=== PATIENT | female | born 1965 | race Caucasian/White ===

== ENCOUNTER 2017-07-05 11:55 | Inpatient (IN) | payer OTHER ==
[2017-07-05 13:57] VITALS: BMI 36.1
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
[2017-07-05] MEDS ORDERED: LOPERAMIDE HCL 2 MG CAPSULE PO PRN (15:14)
[2017-07-05] MEDS ORDERED: IBUPROFEN 400 MG TABLET (FP) PO PRN (15:14)
[2017-07-05] MEDS ORDERED: guaiFENesin/D-METHORPHAN HB 10 ML UNIT-DOSE CUPS PO PRN (15:14)
[2017-07-05] MEDS ORDERED: MAGNESIUM CITRATE 300 ML BOTTLE PO PRN (15:14)
[2017-07-05] MEDS ORDERED: MAGNESIUM HYDROX 2400MG/30ML ORAL SUSPENSION 30 ML CUP PO PRN (15:14)
[2017-07-05] MEDS ORDERED: NICOTINE POLACRILEX 2 MG GUM BUC PRN (15:14)
[2017-07-05] MEDS ORDERED: MENTHOL/PHENOL 1 EACH UD MM PRN (15:14)
[2017-07-05] MEDS ORDERED: MAG HYDROX/AL HYDROX/SIMETH 30 ML UNIT-DOSE CUP PO PRN (15:14)
[2017-07-05] MEDS ORDERED: ACETAMINOPHEN 325 MG TABLET (FP) PO PRN (15:14)
[2017-07-05] MEDS ORDERED: P-EPHED 60MG/TRIPROLIDI 2.5MG TABLET PO PRN (15:14)
[2017-07-05] MEDS ORDERED: METHADONE HCL 10 MG TABLET (FOR DETOX USE ONLY) PO ONE ×2 (15:50→23:00)
[2017-07-05] MEDS: diazePAM 5 MG TABLET PO PRN ×2 (17:48→22:18)
[2017-07-05] MEDS: NICOTINE 21 MG/24 HOURS TOPICAL PATCH TD SCH (17:48)
[2017-07-05] MEDS: THIAMINE HCL 100 MG TABLET (FP) PO SCH (22:18)
[2017-07-05] MEDS: ATORVASTATIN CA 20 MG TABLET (FP) PO SCH (22:18)
[2017-07-05] MEDS: INSULIN DETEMIR 100 UNITS/ML MDV SQ SCH (22:19)
[2017-07-06 00:28] LABS: URINE APPEARANCE CLEAR; URINE BILIRUBIN NEGATIVE (NEGATIVE); URINE BLOOD NEGATIVE (NEGATIVE); URINE COLOR YELLOW; URINE GLUCOSE (UA) NEGATIVE (NEGATIVE); URINE KETONE NEGATIVE (NEGATIVE); URINE LEUK ESTERASE NEGATIVE (NEGATIVE); URINE NITRITE NEGATIVE (NEGATIVE); URINE PROTEIN NEGATIVE (NEGATIVE); URINE UROBILINOGEN NEGATIVE mg/dL (0.2-1.0)
[2017-07-06] MEDS ORDERED: METHADONE HCL 10 MG TABLET (FOR DETOX USE ONLY) PO ONE (10:00)
[2017-07-06 10:10] LABS: HEMATOCRIT 38.4 % (32.4-45.2); HEMOGLOBIN 12.8 GM/dL (10.7-15.3); MCH 30.2 pg (25.7-33.7); MCHC 33.5 g/dl (32.0-36.0); MEAN CELL VOLUME 90.2 fl (80-96); MEAN PLT VOLUME 8.2 fl (7.5-11.1); PLATELET COUNT 266 K/MM3 (134-434); RBC 4.26 M/mm3 (3.60-5.2); RDW 13.6 % (11.6-15.6); WHITE BLOOD COUNT 10.2 K/mm3 (4.0-10.0)
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
[2017-07-06 10:28] LABS: CHLORIDE 101 mmol/L (98-107); SODIUM 136 mmol/L (136-145)
[2017-07-06 10:37] LABS: ALBUMIN 4.2 g/dl (3.4-5.0); ALK PHOS 132 U/L (45-117); ANION GAP 8 (8-16); BILIRUBIN,TOTAL 0.6 mg/dL (0.2-1.0); BLOOD UREA NITROGEN 12 mg/dL (7-18); CALCIUM 9.3 mg/dL (8.5-10.1); CO2 27 mmol/L (21-32); CREATININE 0.7 mg/dL (0.55-1.02); GLUCOSE,RANDOM 193 mg/dL (74-106); SGOT/AST 10 U/L (15-37); SGPT/ALT 10 U/L (12-78); TOT PROT 7.8 g/dl (6.4-8.2)
[2017-07-06] MEDS: amLODIPine BESYLATE 10 MG TABLET (FP) PO SCH (10:37)
[2017-07-06] MEDS: PRENATAL VITAMINS W/ FOLIC ACID TABLET (FP) PO SCH (10:37)
[2017-07-06] MEDS: PATIENT'S OWN MEDICATION (NON-FORMULARY) (Empagliflozin [Jardiance] 25 MG) PO SCH (10:38)
[2017-07-06] MEDS: PATIENT'S OWN MEDICATION (NON-FORMULARY) (Diclofenac Sodium [Diclofenac Sodium Er] 100 MG) PO SCH (10:38)
[2017-07-06] MEDS: diazePAM 5 MG TABLET PO PRN ×3 (10:38→19:44)
[2017-07-06] MEDS: PATIENT'S OWN MEDICATION (NON-FORMULARY) (Benazepril Hcl [Benazepril Hcl] 20 MG) PO SCH (10:38)
[2017-07-06] MEDS: CHOLECALCIFEROL (VITAMIN D3) 1,000 UNIT TABLET (FP) PO SCH (10:40)
[2017-07-06] MEDS: NICOTINE 21 MG/24 HOURS TOPICAL PATCH TD SCH (10:41)
[2017-07-06] MEDS ORDERED: FLU VACCINE QUAD 60 MCG/0.5 ML (MDV 17-18) IM ONE (12:00)
--- NOTE | 2017-07-06 12:32 | PN ---
[facility] CIWA - CIWA Score Nausea/Vomitin Muscle Tremors: 3 Anxiety: 3 Agitation: 3 Paroxysmal Sweats: 3 Orientation: 0-Oriented Tacttile Disturbances: 2-Mild Itch/Numbness/Burn Auditory Disturbances: 0-None Visual Disturbances: 0-None Headache: 0-None Present CIWA-Ar Total Score: 17 BHS COWS - Scale Resting Pulse: 0= [place] 80 or Below Sweatin= Chills/Flushing Restless Observation: 1= Difficult to Sit Still Pupil Size: 1= Pupils >than Normal Bone or Joint Aches: 2= Severe Diffuse Aches Runny Nose/ Eye Tearin= Nasal Congestion GI Upset > 30mins: 2= Nausea/Diarrhea Tremor Observation of Outstretched Hands: 2= Slight Tremor Visible Yawning Observation: 0= None Anxiety or Irritability: 1=Feels Anxious/Irritable Goose Flesh Skin: 0=Smooth Skin COWS Score: 11 S Progress Note (SOAP) Subjective: interrupted , sleep, ,sweat, decreased appetite Objective: 07/06/17 12:30 Vital Signs Temperature 98.6 F 07/06/17 10:41 Pulse Rate 79 07/06/17 10:41 Respiratory Rate 19 07/06/17 10:41 Blood Pressure 126/76 07/06/17 10:41 O2 Sat by Pulse Oximetry (%) Laboratory Tests 07/05/17 07/05/17 07/06/17 15:02 21:59 00:05 WBC RBC Hgb Hct MCV MCH MCHC RDW Plt Count MPV Sodium Potassium Chloride Carbon Dioxide Anion Gap BUN Creatinine Creat Clearance w eGFR POC Glucometer 256 216 Random Glucose Calcium Total Bilirubin AST ALT Alkaline Phosphatase Total Protein Albumin Urine Color Yellow Urine Appearance Clear Urine pH 5.0 Ur Specific [place] 1.023 Urine Protein Negative Urine Glucose (UA) Negative Urine Ketones Negative Urine Blood Negative Urine Nitrite Negative Urine Bilirubin Negative Urine Urobilinogen Negative Ur Leukocyte Esterase Negative RPR Titer 07/06/17 07/06/17 07/06/17 06:00 06:00 06:00 WBC 10.2 H RBC 4.26 Hgb 12.8 Hct 38.4 MCV 90.2 MCH 30.2 MCHC 33.5 RDW 13.6 Plt Count 266 MPV 8.2 Sodium 136 Potassium 4.0 Chloride 101 Carbon Dioxide 27 Anion Gap 8 BUN 12 Creatinine 0.7 Creat Clearance w eGFR > 60 POC Glucometer Random Glucose 193 H Calcium 9.3 Total Bilirubin 0.6 D AST 10 L ALT 10 L Alkaline Phosphatase 132 H Total Protein 7.8 Albumin 4.2 Urine Color Urine Appearance Urine pH Ur Specific [place] Urine Protein Urine Glucose (UA) Urine Ketones Urine Blood Urine Nitrite Urine Bilirubin Urine Urobilinogen Ur Leukocyte Esterase RPR Titer Nonreactive 07/06/17 06:17 WBC RBC Hgb Hct MCV MCH MCHC RDW Plt Count MPV Sodium Potassium Chloride Carbon Dioxide Anion Gap BUN Creatinine Creat Clearance w eGFR POC Glucometer 161 Random Glucose Calcium Total Bilirubin AST ALT Alkaline Phosphatase Total Protein Albumin Urine Color Urine Appearance Urine pH Ur Specific [place] Urine Protein Urine Glucose (UA) Urine Ketones Urine Blood Urine Nitrite Urine Bilirubin Urine Urobilinogen Ur Leukocyte Esterase RPR Titer pt aox3 in nad , ambulating Assessment: 07/06/17 12:32 withdrawal sx's Plan: cont detox increase fluids myllanta prn
--- NOTE | 2017-07-06 15:11 | EKG ---
Test Reason : Blood Pressure : / mmHG Vent. Rate : 082 BPM Atrial Rate : 082 BPM P-R Int : 154 ms QRS Dur : 090 ms QT Int : 414 ms P-R-T Axes : 072 055 071 degrees QTc Int : 483 ms NORMAL SINUS RHYTHM POSSIBLE LEFT ATRIAL ENLARGEMENT PROLONGED QT ABNORMAL ECG NO PREVIOUS ECGS AVAILABLE Confirmed by ARIANA VILLAGRAN MD ([id number]) on 07/06/2017 3:11:30 PM Referred By: Confirmed By:ARIANA VILLAGRAN MD
[2017-07-06] MEDS: INSULIN DETEMIR 100 UNITS/ML MDV SQ SCH (22:14)
[2017-07-06] MEDS: GABAPENTIN 300 MG CAPSULE (FP) PO SCH (22:14)
[2017-07-06] MEDS: ATORVASTATIN CA 20 MG TABLET (FP) PO SCH (22:14)
[2017-07-06] MEDS: THIAMINE HCL 100 MG TABLET (FP) PO SCH (22:14)
[2017-07-06] MEDS: ZOLPIDEM TARTRATE 10 MG TABLET (PARK CARE ONLY) PO PRN (22:14)
[2017-07-07] MEDS: diazePAM 5 MG TABLET PO PRN ×6 (01:48→23:45)
[2017-07-07] MEDS: GABAPENTIN 300 MG CAPSULE (FP) PO SCH ×3 (06:05→22:25)
[2017-07-07] MEDS ORDERED: METHADONE HCL 5 MG TABLET (FOR DETOX USE ONLY) PO ONE (10:00)
[2017-07-07] MEDS: PATIENT'S OWN MEDICATION (NON-FORMULARY) (Diclofenac Sodium [Diclofenac Sodium Er] 100 MG) PO SCH (10:57)
[2017-07-07] MEDS: amLODIPine BESYLATE 10 MG TABLET (FP) PO SCH (10:57)
[2017-07-07] MEDS: PATIENT'S OWN MEDICATION (NON-FORMULARY) (Empagliflozin [Jardiance] 25 MG) PO SCH (10:57)
[2017-07-07] MEDS: PATIENT'S OWN MEDICATION (NON-FORMULARY) (Benazepril Hcl [Benazepril Hcl] 20 MG) PO SCH (10:57)
[2017-07-07] MEDS: PRENATAL VITAMINS W/ FOLIC ACID TABLET (FP) PO SCH (10:57)
[2017-07-07] MEDS: CHOLECALCIFEROL (VITAMIN D3) 1,000 UNIT TABLET (FP) PO SCH (10:57)
[2017-07-07] MEDS: NICOTINE 21 MG/24 HOURS TOPICAL PATCH TD SCH (10:58)
--- NOTE | 2017-07-07 15:33 | PN ---
S COWS - Scale Resting Pulse: 0= [place] 80 or Below Sweatin= Chills/Flushing Restless Observation: 3= Extraneous Movement Pupil Size: 1= Pupils >than Normal Bone or Joint Aches: 2= Severe Diffuse Aches Runny Nose/ Eye Tearin= Runny Nose/Eyes GI Upset > 30mins: 2= Nausea/Diarrhea Tremor Observation of Outstretched Hands: 2= Slight Tremor Visible Yawning Observation: 1= 1-2x During Session Anxiety or Irritability: 2=Irritable/Anxious Goose Flesh Skin: 0=Smooth Skin COWS Score: 16 S Progress Note (SOAP) Subjective: ALERT,IRRITABLE,ANXIOUS,INTERRUPTED SLEEP,TREMOR,PAIN IN THE BODY AND BACK Objective: 07/07/17 15:31 Vital Signs Temperature 99.0 F 07/07/17 14:09 Pulse Rate 82 07/07/17 14:09 Respiratory Rate 18 07/07/17 14:09 Blood Pressure 126/82 07/07/17 14:09 O2 Sat by Pulse Oximetry (%) Laboratory Last Values WBC 10.2 K/mm3 (4.0-10.0) H 07/06/17 06:00 RBC 4.26 M/mm3 (3.60-5.2) 07/06/17 06:00 Hgb 12.8 GM/dL (10.7-15.3) 07/06/17 06:00 Hct 38.4 % (32.4-45.2) 07/06/17 06:00 MCV 90.2 fl (80-96) 07/06/17 06:00 MCH 30.2 pg (25.7-33.7) 07/06/17 06:00 MCHC 33.5 g/dl (32.0-36.0) 07/06/17 06:00 RDW 13.6 % (11.6-15.6) 07/06/17 06:00 Plt Count 266 K/MM3 (134-434) 07/06/17 06:00 MPV 8.2 fl (7.5-11.1) 07/06/17 06:00 Sodium 136 mmol/L (136-145) 07/06/17 06:00 Potassium 4.0 mmol/L (3.5-5.1) 07/06/17 06:00 Chloride 101 mmol/L (98-107) 07/06/17 06:00 Carbon Dioxide 27 mmol/L (21-32) 07/06/17 06:00 Anion Gap 8 (8-16) 07/06/17 06:00 BUN 12 mg/dL (7-18) 07/06/17 06:00 Creatinine 0.7 mg/dL (0.55-1.02) 07/06/17 06:00 Creat Clearance w eGFR > 60 (>60) 07/06/17 06:00 POC Glucometer 130 UNITS (80-120) 07/06/17 17:05 Random Glucose 193 mg/dL (74-106) H 07/06/17 06:00 Calcium 9.3 mg/dL (8.5-10.1) 07/06/17 06:00 Total Bilirubin 0.6 mg/dL (0.2-1.0) D 07/06/17 06:00 AST 10 U/L (15-37) L 07/06/17 06:00 ALT 10 U/L (12-78) L 07/06/17 06:00 Alkaline Phosphatase 132 U/L (45-117) H 07/06/17 06:00 Total Protein 7.8 g/dl (6.4-8.2) 07/06/17 06:00 Albumin 4.2 g/dl (3.4-5.0) 07/06/17 06:00 Urine Color Yellow 07/06/17 00:05 Urine Appearance Clear 07/06/17 00:05 Urine pH 5.0 (5.0-8.0) 07/06/17 00:05 Ur Specific [place] 1.023 (1.001-1.035) 07/06/17 00:05 Urine Protein Negative (NEGATIVE) 07/06/17 00:05 Urine Glucose (UA) Negative (NEGATIVE) 07/06/17 00:05 Urine Ketones Negative (NEGATIVE) 07/06/17 00:05 Urine Blood Negative (NEGATIVE) 07/06/17 00:05 Urine Nitrite Negative (NEGATIVE) 07/06/17 00:05 Urine Bilirubin Negative (NEGATIVE) 07/06/17 00:05 Urine Urobilinogen Negative mg/dL (0.2-1.0) 07/06/17 00:05 Ur Leukocyte Esterase Negative (NEGATIVE) 07/06/17 00:05 RPR Titer Nonreactive (NONREACTIVE) 07/06/17 06:00 Hep C Ab Diagnostic <0.1 s/co ratio (0.0-0.9) 07/06/17 06:00 Assessment: 07/07/17 15:32 WITHDRAWAL SYMPTOM Plan: CONTINUE DETOX,MEDICATION ADJUST
[2017-07-07] MEDS: ATORVASTATIN CA 20 MG TABLET (FP) PO SCH (22:24)
[2017-07-07] MEDS: THIAMINE HCL 100 MG TABLET (FP) PO SCH (22:25)
[2017-07-07] MEDS: ZOLPIDEM TARTRATE 10 MG TABLET (PARK CARE ONLY) PO PRN (22:25)
[2017-07-08] MEDS: INSULIN DETEMIR 100 UNITS/ML MDV SQ SCH ×2 (00:07→22:31)
[2017-07-08] MEDS: hydrOXYzine PAMOATE 25 MG CAPSULE (FP) PO PRN (01:47)
[2017-07-08] MEDS: diazePAM 5 MG TABLET PO PRN ×3 (04:30→13:47)
[2017-07-08] MEDS: GABAPENTIN 300 MG CAPSULE (FP) PO SCH ×3 (07:17→22:31)
[2017-07-08] MEDS ORDERED: METHADONE HCL 10 MG TABLET (FOR DETOX USE ONLY) PO ONE (10:00)
[2017-07-08] MEDS ORDERED: METHADONE HCL 5 MG TABLET (FOR DETOX USE ONLY) PO ONE (10:00)
[2017-07-08] MEDS: PRENATAL VITAMINS W/ FOLIC ACID TABLET (FP) PO SCH (10:19)
[2017-07-08] MEDS: NICOTINE 21 MG/24 HOURS TOPICAL PATCH TD SCH (10:20)
[2017-07-08] MEDS: amLODIPine BESYLATE 10 MG TABLET (FP) PO SCH (10:20)
[2017-07-08] MEDS: PATIENT'S OWN MEDICATION (NON-FORMULARY) (Benazepril Hcl [Benazepril Hcl] 20 MG) PO SCH (10:21)
[2017-07-08] MEDS: CHOLECALCIFEROL (VITAMIN D3) 1,000 UNIT TABLET (FP) PO SCH (10:21)
[2017-07-08] MEDS: PATIENT'S OWN MEDICATION (NON-FORMULARY) (Empagliflozin [Jardiance] 25 MG) PO SCH (10:21)
[2017-07-08] MEDS: PATIENT'S OWN MEDICATION (NON-FORMULARY) (Diclofenac Sodium [Diclofenac Sodium Er] 100 MG) PO SCH (10:22)
--- NOTE | 2017-07-08 15:49 | PN ---
BHS Progress Note (SOAP) Subjective: sweat tremor anxiety restlessness irritable stuffy nose joint pain body aches Objective: 07/08/17 15:48 Vital Signs Temperature 97.9 F 07/08/17 15:13 Pulse Rate 80 07/08/17 15:13 Respiratory Rate 18 07/08/17 15:13 Blood Pressure 117/69 07/08/17 15:13 O2 Sat by Pulse Oximetry (%) Laboratory Last Values WBC 10.2 K/mm3 (4.0-10.0) H 07/06/17 06:00 RBC 4.26 M/mm3 (3.60-5.2) 07/06/17 06:00 Hgb 12.8 GM/dL (10.7-15.3) 07/06/17 06:00 Hct 38.4 % (32.4-45.2) 07/06/17 06:00 MCV 90.2 fl (80-96) 07/06/17 06:00 MCH 30.2 pg (25.7-33.7) 07/06/17 06:00 MCHC 33.5 g/dl (32.0-36.0) 07/06/17 06:00 RDW 13.6 % (11.6-15.6) 07/06/17 06:00 Plt Count 266 K/MM3 (134-434) 07/06/17 06:00 MPV 8.2 fl (7.5-11.1) 07/06/17 06:00 Sodium 136 mmol/L (136-145) 07/06/17 06:00 Potassium 4.0 mmol/L (3.5-5.1) 07/06/17 06:00 Chloride 101 mmol/L (98-107) 07/06/17 06:00 Carbon Dioxide 27 mmol/L (21-32) 07/06/17 06:00 Anion Gap 8 (8-16) 07/06/17 06:00 BUN 12 mg/dL (7-18) 07/06/17 06:00 Creatinine 0.7 mg/dL (0.55-1.02) 07/06/17 06:00 Creat Clearance w eGFR > 60 (>60) 07/06/17 06:00 POC Glucometer 104 UNITS (80-120) 07/08/17 11:47 Random Glucose 193 mg/dL (74-106) H 07/06/17 06:00 Calcium 9.3 mg/dL (8.5-10.1) 07/06/17 06:00 Total Bilirubin 0.6 mg/dL (0.2-1.0) D 07/06/17 06:00 AST 10 U/L (15-37) L 07/06/17 06:00 ALT 10 U/L (12-78) L 07/06/17 06:00 Alkaline Phosphatase 132 U/L (45-117) H 07/06/17 06:00 Total Protein 7.8 g/dl (6.4-8.2) 07/06/17 06:00 Albumin 4.2 g/dl (3.4-5.0) 07/06/17 06:00 Urine Color Yellow 07/06/17 00:05 Urine Appearance Clear 07/06/17 00:05 Urine pH 5.0 (5.0-8.0) 07/06/17 00:05 Ur Specific [place] 1.023 (1.001-1.035) 07/06/17 00:05 Urine Protein Negative (NEGATIVE) 07/06/17 00:05 Urine Glucose (UA) Negative (NEGATIVE) 07/06/17 00:05 Urine Ketones Negative (NEGATIVE) 07/06/17 00:05 Urine Blood Negative (NEGATIVE) 07/06/17 00:05 Urine Nitrite Negative (NEGATIVE) 07/06/17 00:05 Urine Bilirubin Negative (NEGATIVE) 07/06/17 00:05 Urine Urobilinogen Negative mg/dL (0.2-1.0) 07/06/17 00:05 Ur Leukocyte Esterase Negative (NEGATIVE) 07/06/17 00:05 RPR Titer Nonreactive (NONREACTIVE) 07/06/17 06:00 Hep C Ab Diagnostic <0.1 s/co ratio (0.0-0.9) 07/06/17 06:00 lab noted Assessment: 07/08/17 15:48 withdrawal sx Plan: continue detox
[2017-07-08] MEDS ORDERED: hydrOXYzine PAMOATE 50 MG CAPSULE (FP) PO ONE (18:05)
[2017-07-08] MEDS ORDERED: cloNIDine HCL 0.1 MG TABLET PO ONE (18:06)
--- NOTE | 2017-07-08 18:10 | PN ---
[facility] Progress Note Note: WITHDRAWAL SYMPTOM Vital Signs Temperature 97.1 F L 07/08/17 17:21 Pulse Rate 114 H 07/08/17 17:21 Respiratory Rate 20 07/08/17 17:21 Blood Pressure 142/102 07/08/17 17:21 O2 Sat by Pulse Oximetry (%) VISTARIL 50 MGS PO NOW CLONIDINE 0.1 MG PO NOW THEN BID CONTINUE DETOX,CLOSE MONITORING
[2017-07-08] MEDS: THIAMINE HCL 100 MG TABLET (FP) PO SCH (22:30)
[2017-07-08] MEDS: cloNIDine HCL 0.1 MG TABLET PO SCH (22:30)
[2017-07-08] MEDS: ATORVASTATIN CA 20 MG TABLET (FP) PO SCH (22:31)
[2017-07-08] MEDS: ZOLPIDEM TARTRATE 10 MG TABLET (PARK CARE ONLY) PO PRN (22:31)
[2017-07-09] MEDS ORDERED: METHADONE HCL 5 MG TABLET (FOR DETOX USE ONLY) PO ONE (06:00)
[2017-07-09] MEDS: GABAPENTIN 300 MG CAPSULE (FP) PO SCH (06:43)
[2017-07-09] MEDS: hydrOXYzine PAMOATE 25 MG CAPSULE (FP) PO PRN (06:44)
[2017-07-09 07:09] VITALS: BP 117/73; PULSE 68; TEMP 97.2
--- NOTE | 2017-07-09 09:41 | DS ---
[facility] Detox Discharge Summary Admission Date: 07/05/17 Discharge Date: 07/09/17 - History Present History: Opioid Dependence Additional Comments: 52 years old female admitted for opiate detox completed detox regimen today wants to go to [facility] for recovery patient is alert oriented x 3 steady gait no acute distress denies withdrawal sx cardiac s1s2 lung clear blaterally abdomen soft non tender extremities full rang of motion - Physical Exam Results Vital Signs: Vital Signs Temperature 97.2 F L 07/09/17 07:09 Pulse Rate 68 07/09/17 07:09 Respiratory Rate 20 07/09/17 07:09 Blood Pressure 117/73 07/09/17 07:09 O2 Sat by Pulse Oximetry (%) Pertinent Admission Physical Exam Findings: withdrawl sx Vital Signs Temperature 97.2 F L 07/09/17 07:09 Pulse Rate 68 07/09/17 07:09 Respiratory Rate 20 07/09/17 07:09 Blood Pressure 117/73 07/09/17 07:09 O2 Sat by Pulse Oximetry (%) Laboratory Last Values WBC 10.2 K/mm3 (4.0-10.0) H 07/06/17 06:00 RBC 4.26 M/mm3 (3.60-5.2) 07/06/17 06:00 Hgb 12.8 GM/dL (10.7-15.3) 07/06/17 06:00 Hct 38.4 % (32.4-45.2) 07/06/17 06:00 MCV 90.2 fl (80-96) 07/06/17 06:00 MCH 30.2 pg (25.7-33.7) 07/06/17 06:00 MCHC 33.5 g/dl (32.0-36.0) 07/06/17 06:00 RDW 13.6 % (11.6-15.6) 07/06/17 06:00 Plt Count 266 K/MM3 (134-434) 07/06/17 06:00 MPV 8.2 fl (7.5-11.1) 07/06/17 06:00 Sodium 136 mmol/L (136-145) 07/06/17 06:00 Potassium 4.0 mmol/L (3.5-5.1) 07/06/17 06:00 Chloride 101 mmol/L (98-107) 07/06/17 06:00 Carbon Dioxide 27 mmol/L (21-32) 07/06/17 06:00 Anion Gap 8 (8-16) 07/06/17 06:00 BUN 12 mg/dL (7-18) 07/06/17 06:00 Creatinine 0.7 mg/dL (0.55-1.02) 07/06/17 06:00 Creat Clearance w eGFR > 60 (>60) 07/06/17 06:00 POC Glucometer 147 UNITS (80-120) 07/09/17 07:00 Random Glucose 193 mg/dL (74-106) H 07/06/17 06:00 Calcium 9.3 mg/dL (8.5-10.1) 07/06/17 06:00 Total Bilirubin 0.6 mg/dL (0.2-1.0) D 07/06/17 06:00 AST 10 U/L (15-37) L 07/06/17 06:00 ALT 10 U/L (12-78) L 07/06/17 06:00 Alkaline Phosphatase 132 U/L (45-117) H 07/06/17 06:00 Total Protein 7.8 g/dl (6.4-8.2) 07/06/17 06:00 Albumin 4.2 g/dl (3.4-5.0) 07/06/17 06:00 Urine Color Yellow 07/06/17 00:05 Urine Appearance Clear 07/06/17 00:05 Urine pH 5.0 (5.0-8.0) 07/06/17 00:05 Ur Specific [place] 1.023 (1.001-1.035) 07/06/17 00:05 Urine Protein Negative (NEGATIVE) 07/06/17 00:05 Urine Glucose (UA) Negative (NEGATIVE) 07/06/17 00:05 Urine Ketones Negative (NEGATIVE) 07/06/17 00:05 Urine Blood Negative (NEGATIVE) 07/06/17 00:05 Urine Nitrite Negative (NEGATIVE) 07/06/17 00:05 Urine Bilirubin Negative (NEGATIVE) 07/06/17 00:05 Urine Urobilinogen Negative mg/dL (0.2-1.0) 07/06/17 00:05 Ur Leukocyte Esterase Negative (NEGATIVE) 07/06/17 00:05 RPR Titer Nonreactive (NONREACTIVE) 07/06/17 06:00 Hep C Ab Diagnostic <0.1 s/co ratio (0.0-0.9) 07/06/17 06:00 lab noted - Treatment Hospital Course: Detox Protocol Followed, Detoxed Safely, Responded well, Discharged Condition Good, Rehab Referral Accepted Patient has Accepted a Rehab Referral to: [facility] - Medication Discharge Medications: Ambulatory Orders Benazepril HCl 20 mg PO DAILY 07/05/17 Cholecalciferol (Vitamin D3) [Vitamin D3] 2,000 unit PO DAILY 07/05/17 Diclofenac Sodium [Diclofenac Sodium ER] 100 mg PO DAILY 07/05/17 Empagliflozin [Jardiance] 25 mg PO DAILY 07/05/17 Insulin Glargine,Hum.rec.anlog [Basaglar Kwikpen U-100] 45 unit SQ HS 07/05/17 Trazodone HCl 150 mg PO HS 07/05/17 Amlodipine Besylate [Norvasc -] 10 mg PO DAILY #30 tablet 07/09/17 Atorvastatin Calcium [Lipitor] 20 mg PO HS #30 tablet 07/09/17 Gabapentin [Neurontin -] 300 mg PO Q8H #90 capsule 07/09/17 - Diagnosis (1) Essential hypertension Current Visit: Yes Status: Chronic (2) Opioid dependence with withdrawal Current Visit: Yes Status: Acute (3) IDDM (insulin dependent diabetes mellitus) Current Visit: Yes Status: Chronic - AMA Did Patient Leave Against Medical Advice: No
[2017-07-09] MEDS ORDERED: METHADONE HCL 10 MG TABLET (FOR DETOX USE ONLY) PO ONE (10:00)
[2017-07-09] MEDS: PATIENT'S OWN MEDICATION (NON-FORMULARY) (Diclofenac Sodium [Diclofenac Sodium Er] 100 MG) PO SCH (10:00)
[2017-07-09] MEDS: cloNIDine HCL 0.1 MG TABLET PO SCH (10:00)
[2017-07-09] MEDS: PATIENT'S OWN MEDICATION (NON-FORMULARY) (Benazepril Hcl [Benazepril Hcl] 20 MG) PO SCH (10:00)
[2017-07-09] MEDS: amLODIPine BESYLATE 10 MG TABLET (FP) PO SCH (10:01)
[2017-07-09] MEDS: PRENATAL VITAMINS W/ FOLIC ACID TABLET (FP) PO SCH (10:01)
[2017-07-09] MEDS: CHOLECALCIFEROL (VITAMIN D3) 1,000 UNIT TABLET (FP) PO SCH (10:01)
[2017-07-09] MEDS: NICOTINE 21 MG/24 HOURS TOPICAL PATCH TD SCH (10:01)
[2017-07-09] MEDS: PATIENT'S OWN MEDICATION (NON-FORMULARY) (Empagliflozin [Jardiance] 25 MG) PO SCH (10:01)
[2017-07-10] MEDS ORDERED: METHADONE HCL 5 MG TABLET (FOR DETOX USE ONLY) PO ONE (06:00)
== END 2017-07-09 09:11 | disposition home or self-care (01) | DRG 773 ==
LOC: YASAS 11:55 → Y6N 15:23
PROVIDERS: ADMIT Internal Medicine; ATTEND Internal Medicine
PROC: HZ2ZZZZ Detoxification Services for Substance Abuse Treatment (ICD-10-PCS; principal; 2017-07-05)
DX: F11.23 Opioid dependence with withdrawal (principal); F14.20 Cocaine dependence, uncomplicated; F12.20 Cannabis dependence, uncomplicated; F17.210 Nicotine dependence, cigarettes, uncomplicated; F51.05 Insomnia due to other mental disorder; F33.9 Major depressive disorder, recurrent, unspecified; F19.24 Other psychoactive substance dependence with psychoactive substance-induced mood disorder; I10 Essential (primary) hypertension; E11.9 Type 2 diabetes mellitus without complications; Z79.4 Long term (current) use of insulin; E78.00 Pure hypercholesterolemia, unspecified; Z86.718 Personal history of other venous thrombosis and embolism
CPT/HCPCS: 36415; 80053; 81003; 82962; 85027; 86593; 90688; 93005; 93010; G0008; J0735